=== PATIENT | female | born 1965 | race Caucasian/White ===

== ENCOUNTER 2016-11-06 11:17 | Emergency (ER) | payer MEDICARE, OTHER | END 2016-11-06 14:26 | disposition home or self-care (01) | LOC: FER 11:17 | DX: S39.011A Strain of muscle, fascia and tendon of abdomen, initial encounter (principal); I50.9 Heart failure, unspecified; F17.210 Nicotine dependence, cigarettes, uncomplicated; Z88.5 Allergy status to narcotic agent; Z88.6 Allergy status to analgesic agent; Z91.041 Radiographic dye allergy status; Z95.1 Presence of aortocoronary bypass graft; Z95.5 Presence of coronary angioplasty implant and graft ==